=== PATIENT | female | born 1945 | race Caucasian/White ===

== ENCOUNTER 2025-01-10 14:33 | Inpatient (IN) | payer OTHER, BC ==
[2025-01-10 15:55] LABS: MCHC 31.7 g/dl (32.2-35.5); RDW 15.2 % (12.5-17.0)
[2025-01-10 15:57] LABS: IMMATURE PLATELET FRACTION # 6.10 x10^3/uL; MEAN CELL VOLUME 97.8 fl (79.4-94.8); MEAN PLT VOLUME 9.9 fl (9.4-12.3)
[2025-01-10 16:02] LABS: BG HCT 41.0 % (32.4-45.2); VENOUS BASE EXCESS 4.6 mmol/L (-2-2); VENOUS O2 SATURATION 64.7 % (70-80); VENOUS PCO2 61.9 mmHg (38-52); VENOUS PH 7.336 (7.310-7.410)
[2025-01-10] MEDS ORDERED: PIPERACILLIN/TAZOB 3.375 GM 3.375 GM/50 ML BAG IVPB ONE (16:15)
[2025-01-10] MEDS ORDERED: VANCOMYCIN 1 GM PREMIX (F) 1 GM/200 ML BAG ONE (16:16)
[2025-01-10] MEDS: SODIUM CHLORIDE 0.9% 500 ML INFUS.BAG IV ONE (16:18)
[2025-01-10] MEDS: PIPERACILLIN/TAZOB 3.375 GM 3.375 GM in DEXTROSE 5%-WATER - 50 ML IVPB ONE (16:18)
[2025-01-10 16:26] LABS: GLUCOSE,RANDOM 97.0 mg/dL (74-106); TOT PROT 6.2 g/dl (6.4-8.2)
[2025-01-10 16:27] LABS: CO2 29.0 mmol/L (21-32)
[2025-01-10 16:29] LABS: ALK PHOS 144.0 U/L (40-150)
[2025-01-10 16:31] LABS: SGOT/AST 62.0 U/L (5-34); SGPT/ALT 81.0 U/L (0-55)
[2025-01-10 16:32] LABS: EPI CELLS >36 /uL (0-25.1); HYALINE CASTS 17 /uL (0-3.1); URINE APPEARANCE TURBID; URINE BACTERIA >9,000 /uL (0-1359); URINE BILIRUBIN NEGATIVE (NEGATIVE); URINE COLOR YELLOW; URINE GLUCOSE (UA) NEGATIVE (NEGATIVE); URINE KETONE NEGATIVE (NEGATIVE); URINE LEUK ESTERASE 3+ (NEGATIVE); URINE NITRITE POSITIVE (NEGATIVE); URINE PROTEIN 1+ (NEGATIVE); URINE UROBILINOGEN 0.2 mg/dL (0.2-1.0); URINE WBC 7989 /uL (0-25.8)
[2025-01-10 16:32] LABS: CREATININE 0.74 mg/dL (0.55-1.3)
[2025-01-10] MEDS: VANCOMYCIN 1 GM PREMIX (F) 1 GM/200 ML BAG IVPB ONE (16:52)
[2025-01-10 19:18] LABS: URINE RBC 57.4 /uL (0-23.9); YEAST NEGATIVE (NEGATIVE)
[2025-01-10] MEDS ORDERED: ACETAMINOPHEN 325 MG TABLET (FP) PO PRN (20:08)
[2025-01-10] MEDS ORDERED: PIPERACILLIN/TAZOB 3.375 GM 3.375 GM in DEXTROSE 5%-WATER - 50 ML IVPB SCH (22:00)
[2025-01-10] MEDS: LACTATED RINGERS SOLUTION 1,000 ML/1,000 ML INFUS.BAG IV SCH (22:28)
[2025-01-10] MEDS: HEPARIN NA (PORCINE) 5,000 UNITS/ML 1ML VIAL SQ SCH (22:29)
[2025-01-10] MEDS: LIDOCAINE PATCH REMOVAL MC SCH (22:29)
[2025-01-10] MEDS: PIPERACILLIN/TAZOB 3.375 GM 3.375 GM in DEXTROSE 5%-WATER - 50 ML IVPB SCH ×2 (22:29→23:47)
[2025-01-11 00:13] LABS: COCAINE, UR NEGATIVE (NEGATIVE); PHENCYCLIDINE,URINE NEGATIVE (NEGATIVE)
[2025-01-11 00:14] LABS: METHADONE, UR NEGATIVE (NEGATIVE); OPIATES, URI NEGATIVE (NEGATIVE); URINE AMPHETAMINES NEGATIVE (NEGATIVE); URINE BARBITURATES NEGATIVE (NEGATIVE); URINE BENZODIAZEPINES POSITIVE (NEGATIVE)
[2025-01-11 07:29] LABS: GLUCOSE,RANDOM 77.0 mg/dL (74-106); TOT PROT 5.8 g/dl (6.4-8.2)
[2025-01-11 07:30] LABS: CO2 27.0 mmol/L (21-32)
[2025-01-11 07:31] LABS: ALK PHOS 127.0 U/L (40-150); LDL CHOLESTEROL (ONLY SJRH) 52 mg/dL (5-100); RDW 15.6 % (12.5-17.0)
[2025-01-11 07:33] LABS: IMMATURE PLATELET FRACTION # 7.60 x10^3/uL; MCHC 32.2 g/dl (32.2-35.5); MEAN CELL VOLUME 96.3 fl (79.4-94.8); MEAN PLT VOLUME 11.0 fl (9.4-12.3)
[2025-01-11 07:34] LABS: SGOT/AST 52.0 U/L (5-34); SGPT/ALT 71.0 U/L (0-55)
[2025-01-11 07:35] LABS: CREATININE 0.81 mg/dL (0.55-1.3)
[2025-01-11] MEDS: CITALOPRAM HYDROBROMIDE 20 MG TABLET PO SCH (09:53)
[2025-01-11] MEDS: ATORVASTATIN CA 10 MG TABLET (FP) PO SCH (09:53)
[2025-01-11] MEDS: GABAPENTIN 100 MG CAPSULE PO SCH (09:54)
[2025-01-11] MEDS: MEMANTINE HCL 10 MG TABLET (FP) PO SCH (09:54)
[2025-01-11] MEDS: ZINC OXIDE 20% TOPICAL OINTMENT 30 GM TUBE TP SCH (09:54)
[2025-01-11] MEDS: LIDOCAINE 5% TOPICAL PATCH TP SCH (09:56)
[2025-01-11] MEDS ORDERED: LEVOTHYROXINE NA 50 MCG TABLET (FP) PO SCH (10:00)
[2025-01-11] MEDS ORDERED: LEVOTHYROXINE SODIUM 100 MCG 5 ML VIAL IVPUSH SCH (10:00)
[2025-01-11] MEDS: LEVOTHYROXINE SODIUM 100 MCG 5 ML VIAL IVPUSH SCH (11:17)
[2025-01-11] MEDS: D5-1/2NS+20 MEQ KCL - 20 MEQ/1,000 ML INFUS.BAG IV SCH (17:33)
[2025-01-11] MEDS: ACETAMINOPHEN 1000 MG/100 ML BAG IVPB PRN (18:56)
[2025-01-11] MEDS: DONEPEZIL HCL 10 MG TABLET (FP) PO SCH (21:02)
[2025-01-11] MEDS: PIPERACILLIN/TAZOB 3.375 GM 3.375 GM in DEXTROSE 5%-WATER - 50 ML IVPB SCH (21:29)
[2025-01-12 06:51] LABS: IMMATURE PLATELET FRACTION # 4.70 x10^3/uL; MCHC 32.6 g/dl (32.2-35.5); MEAN CELL VOLUME 96.5 fl (79.4-94.8); MEAN PLT VOLUME 11.3 fl (9.4-12.3); RDW 16.5 % (12.5-17.0)
[2025-01-12 06:58] LABS: GLUCOSE,RANDOM 102.0 mg/dL (74-106)
[2025-01-12 06:59] LABS: TOT PROT 5.4 g/dl (6.4-8.2)
[2025-01-12 07:00] LABS: CO2 24.0 mmol/L (21-32)
[2025-01-12 07:01] LABS: ALK PHOS 110.0 U/L (40-150)
[2025-01-12 07:04] LABS: CREATININE 1.03 mg/dL (0.55-1.3); SGOT/AST 45.0 U/L (5-34); SGPT/ALT 58.0 U/L (0-55)
[2025-01-12 14:52] VITALS: BMI 17.0
[2025-01-12] MEDS: ERTAPENEM SODIUM 1 GM in SODIUM CHLORIDE 50 ML IVPB SCH (17:35)
[2025-01-13 06:32] LABS: MCHC 32.9 g/dl (32.2-35.5)
[2025-01-13 06:33] LABS: IMMATURE PLATELET FRACTION # 4.20 x10^3/uL; MEAN CELL VOLUME 95.3 fl (79.4-94.8); MEAN PLT VOLUME 10.2 fl (9.4-12.3); RDW 16.5 % (12.5-17.0)
[2025-01-13 06:46] LABS: GLUCOSE,RANDOM 113.0 mg/dL (74-106); TOT PROT 5.4 g/dl (6.4-8.2)
[2025-01-13 06:47] LABS: CO2 21.0 mmol/L (21-32)
[2025-01-13 06:49] LABS: ALK PHOS 106.0 U/L (40-150)
[2025-01-13 06:52] LABS: CREATININE 0.8 mg/dL (0.55-1.3); SGOT/AST 34.0 U/L (5-34); SGPT/ALT 44.0 U/L (0-55)
[2025-01-13] MEDS: KCL 10 MEQ IVPB 10 MEQ/100 ML INFUS.BAG IVPB SCH (12:00)
[2025-01-14 07:32] LABS: BASOPHILS # 0.02 x10^3/uL (0.01-0.08)
[2025-01-14 07:35] LABS: ABSOLUTE IMMATURE GRANULOCYTES 0.09 x10^3/uL (0.0-0.031); EOSINOPHIL % 0.7 % (0.7-5.8); EOSINOPHILS # 0.08 x10^3/uL (0.04-0.36); IMMATURE PLATELET FRACTION # 4.90 x10^3/uL; MCHC 32.7 g/dl (32.2-35.5); MEAN CELL VOLUME 95.0 fl (79.4-94.8); MEAN PLT VOLUME 10.5 fl (9.4-12.3); MONOCYTE # 0.88 x10^3/uL (0.24-0.86); MONOCYTE % 7.3 % (4.7-12.5); RDW 16.0 % (12.5-17.0)
[2025-01-14 07:59] LABS: GLUCOSE,RANDOM 88.0 mg/dL (74-106)
[2025-01-14 08:00] LABS: TOT PROT 5.4 g/dl (6.4-8.2)
[2025-01-14 08:01] LABS: CO2 21.0 mmol/L (21-32)
[2025-01-14 08:03] LABS: ALK PHOS 112.0 U/L (40-150)
[2025-01-14 08:05] LABS: SGOT/AST 24.0 U/L (5-34); SGPT/ALT 32.0 U/L (0-55)
[2025-01-14 08:06] LABS: CREATININE 0.73 mg/dL (0.55-1.3)
[2025-01-14] MEDS: KCL 10 MEQ IVPB 10 MEQ/100 ML INFUS.BAG IVPB SCH (10:24)
[2025-01-14] MEDS: MAGNESIUM 2GM/50ML STERILE WATER IVPB IVPB ONE (10:24)
[2025-01-14] MEDS: ENOXAPARIN NA (PORCINE) 60 MG/0.6 ML DISP.SYRIN SQ SCH (21:21)
[2025-01-15] MEDS: ALBUTEROL SO4 2.5/IPRATROPIUM 0.5 INH SOL 3 ML VIAL.NEB. NEB PRN (07:40)
[2025-01-15] MEDS ORDERED: MAGNESIUM SULFATE IN WATER 2 GM/50 ML IVPB IVPB ONE (15:31)
[2025-01-16 06:39] LABS: ABSOLUTE IMMATURE GRANULOCYTES 0.08 x10^3/uL (0.0-0.031); BASOPHILS # 0.04 x10^3/uL (0.01-0.08); EOSINOPHIL % 1.2 % (0.7-5.8); EOSINOPHILS # 0.10 x10^3/uL (0.04-0.36); MCHC 33.6 g/dl (32.2-35.5); MEAN CELL VOLUME 91.1 fl (79.4-94.8); MEAN PLT VOLUME 9.8 fl (9.4-12.3); MONOCYTE # 1.18 x10^3/uL (0.24-0.86); MONOCYTE % 14.1 % (4.7-12.5); RDW 15.0 % (12.5-17.0)
[2025-01-16 06:57] LABS: GLUCOSE,RANDOM 112.0 mg/dL (74-106)
[2025-01-16 06:58] LABS: TOT PROT 5.3 g/dl (6.4-8.2)
[2025-01-16 06:59] LABS: CO2 22.0 mmol/L (21-32)
[2025-01-16 07:00] LABS: ALK PHOS 111.0 U/L (40-150)
[2025-01-16 07:03] LABS: CREATININE 0.66 mg/dL (0.55-1.3); SGOT/AST 20.0 U/L (5-34); SGPT/ALT 26.0 U/L (0-55)
[2025-01-16] MEDS: D5-1/2NS+20 MEQ KCL - 20 MEQ/1,000 ML INFUS.BAG IV SCH ×2 (08:15→10:52)
[2025-01-16] MEDS: KCL 10 MEQ IVPB 10 MEQ/100 ML INFUS.BAG IVPB SCH (08:16)
[2025-01-17 06:54] LABS: GLUCOSE,RANDOM 108.0 mg/dL (74-106)
[2025-01-17 07:13] LABS: CO2 21.0 mmol/L (21-32); CREATININE 0.62 mg/dL (0.55-1.3)
[2025-01-17] MEDS: ERTAPENEM SODIUM 1 GM in SODIUM CHLORIDE 50 ML IVPB SCH (11:02)
[2025-01-17] MEDS: KCL 10 MEQ IVPB 10 MEQ/100 ML INFUS.BAG IVPB SCH (11:02)
[2025-01-17] MEDS: POTASSIUM PHOSPHATE 15 MM in SODIUM CHLORIDE 250 ML IVPB ONE (17:39)
[2025-01-17] MEDS: POTASSIUM CHLORIDE 20 MEQ in AMINO ACIDS 4.25%/D5W 1,000 ML IV SCH (18:12)
[2025-01-17] MEDS: METOPROLOL TARTRATE 5 MG/5 ML VIAL IVPUSH PRN (20:30)
[2025-01-18 07:06] LABS: GLUCOSE,RANDOM 106.0 mg/dL (74-106); TOT PROT 5.8 g/dl (6.4-8.2)
[2025-01-18 07:07] LABS: CO2 21.0 mmol/L (21-32)
[2025-01-18 07:09] LABS: ALK PHOS 105.0 U/L (40-150)
[2025-01-18 07:11] LABS: SGOT/AST 18.0 U/L (5-34); SGPT/ALT 17.0 U/L (0-55)
[2025-01-18 07:12] LABS: CREATININE 0.63 mg/dL (0.55-1.3)
[2025-01-18] MEDS: KCL 10 MEQ IVPB 10 MEQ/100 ML INFUS.BAG IVPB SCH (10:59)
[2025-01-18] MEDS ORDERED: MAGNESIUM SULF 50% (8.12 MEQ/2 ML-1 GM VIAL) IVPB ONE (13:00)
[2025-01-18] MEDS: SODIUM CHLORIDE 250 ML IV STA (15:45)
[2025-01-18] MEDS: POTASSIUM PHOSPHATE 30 MM in SODIUM CHLORIDE 500 ML IVPB ONE (15:52)
[2025-01-18] MEDS: MAGNESIUM 2GM/50ML STERILE WATER IVPB IVPB ONE (15:56)
[2025-01-18] MEDS ORDERED: FAT EMULSION/OLIVE/SOY (CLINOLIPID) 250 ML EMULSION IV SCH (22:00)
[2025-01-18] MEDS ORDERED: FAT EMULSION/OLIVE/SOY/PHOSPHO 250 ML IV SCH (22:00)
[2025-01-20 07:16] LABS: ABSOLUTE IMMATURE GRANULOCYTES 0.06 x10^3/uL (0.0-0.031); BASOPHILS # 0.11 x10^3/uL (0.01-0.08); EOSINOPHIL % 2.4 % (0.7-5.8); EOSINOPHILS # 0.19 x10^3/uL (0.04-0.36); MCHC 32.6 g/dl (32.2-35.5); MEAN CELL VOLUME 95.7 fl (79.4-94.8); MEAN PLT VOLUME 8.9 fl (9.4-12.3); MONOCYTE # 0.75 x10^3/uL (0.24-0.86); MONOCYTE % 9.3 % (4.7-12.5); RDW 15.3 % (12.5-17.0)
[2025-01-20 07:59] LABS: GLUCOSE,RANDOM 91.0 mg/dL (74-106); TOT PROT 5.5 g/dl (6.4-8.2)
[2025-01-20 08:00] LABS: CO2 24.0 mmol/L (21-32)
[2025-01-20 08:02] LABS: ALK PHOS 94.0 U/L (40-150)
[2025-01-20 08:04] LABS: SGOT/AST 18.0 U/L (5-34); SGPT/ALT 17.0 U/L (0-55)
[2025-01-20 08:05] LABS: CREATININE 0.82 mg/dL (0.55-1.3)
[2025-01-21] MEDS: APIXABAN 2.5 MG TABLET PO SCH (10:49)
[2025-01-22] MEDS: LEVOTHYROXINE NA 50 MCG TABLET (FP) PO SCH (06:09)
[2025-01-22] MEDS: MULTIVITAMINS (DAILY MVI) TABLET (FP) PO SCH (10:04)
[2025-01-22] MEDS: ASCORBIC ACID 250 MG TABLET (FP) PO SCH (10:04)
[2025-01-22] MEDS: AMINO ACIDS/PROTEIN HYDROLYS 30 ML LIQUID.PKT PO SCH (10:04)
[2025-01-22] MEDS: MAGNESIUM OXIDE 400 MG TABLET (FP) PO ONE (12:30)
[2025-01-22 13:22] VITALS: BP 111/66; PULSE 65; RESP 17; TEMP 97.5
== END 2025-01-22 18:03 | DRG 871 ==
LOC: JER 14:33 → JERBED 18:55 → J4W 21:17
PROVIDERS: ADMIT Internal Medicine; ATTEND Internal Medicine
DX: A41.9 Sepsis, unspecified organism (principal); E43 Unspecified severe protein-calorie malnutrition; G92.8 Other toxic encephalopathy; J69.0 Pneumonitis due to inhalation of food and vomit; J96.01 Acute respiratory failure with hypoxia; J96.02 Acute respiratory failure with hypercapnia; R53.2 Functional quadriplegia; N39.0 Urinary tract infection, site not specified; E87.1 Hypo-osmolality and hyponatremia; Z68.1 Body mass index [BMI] 19.9 or less, adult; I10 Essential (primary) hypertension; E03.9 Hypothyroidism, unspecified; G30.9 Alzheimer's disease, unspecified; F02.80 Dementia in other diseases classified elsewhere, unspecified severity, without behavioral disturbance, psychotic disturbance, mood disturbance, and anxiety; E78.5 Hyperlipidemia, unspecified; E87.6 Hypokalemia; I48.0 Paroxysmal atrial fibrillation
CPT/HCPCS: 36415; 70450-TC; 70496-TC; 70498-TC; 71045-TC-FY; 71250-TC; 80048; 80053; 80061; 80307; 81003; 82803; 82962; 83605; 83735; 84100; 84439; 84443; 84484; 85025; 87040; 87086; 87635; 87637-QW; 87899; 93005; 93010; 93306-TC; 94640; 99291; Q9967